=== PATIENT | female | born 1985 | race American Indian/Alaskan Native ===

== ENCOUNTER 2017-04-10 07:33 | Day surgery (SDC) | payer OTHER ==
[2017-04-10] MEDS ORDERED: NACL BACTERIOSTATIC INFILTRATI ONE (08:39)
--- NOTE | 2017-04-10 08:40 | Anesthesia Consultation ---
Anesthesia Consult and Med Hx Date of service: 04/10/17 - Airway Anesthetic Teeth Evaluation: Good, Chipped (upper left molar) ROM Head & Neck: Adequate Mental/Hyoid Distance: Adequate Mallampati Class: Class II Intubation Access Assessment: Probably Good - Pulmonary Exam CTA: Yes - Cardiac Exam Cardiac Exam: RRR - Pre-Operative Health Status ASA Pre-Surgery Classification: ASA3 Proposed Anesthetic Plan: General - Pulmonary Hx Smoking: No - Cardiovascular System Hx Hypertension: Yes (x 11 yrs) - Central Nervous System Hx Psychiatric Problems: No - Gastrointestinal Hx Gastroesophageal Reflux Disease: Yes (Food related) - Endocrine Hx Non-Insulin Dependent Diabetes: Yes - Other Systems Hx Alcohol Use: Yes (occas) Hx Cancer: No Hx Obesity: Yes - Additional Comments Anesthesia Medical History Comments: 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
--- NOTE | 2017-04-10 08:40 | Anesthesia Day of Surgery ---
Anesthesia Day of Surgery - Day of Surgery Patient Examined: Yes Patient H&P Reviewed: Yes Patient is NPO: Yes
[2017-04-10] MEDS ORDERED: NACL 0.9% 1000 ML 1,000 ML IV SCH (09:00)
[2017-04-10] MEDS ORDERED: VERSED IV NR (09:00)
[2017-04-10] MEDS ORDERED: PEPCID IV NR (09:00)
[2017-04-10] MEDS ORDERED: NACL 0.9% IR ONE ×2 (09:40)
[2017-04-10] MEDS ORDERED: DIPRIVAN 10 MG/ML IV ONE (09:56)
[2017-04-10] MEDS ORDERED: DILAUDID ONE (09:57)
[2017-04-10] MEDS ORDERED: XYLOCAINE MPF 2% ONE (09:57)
--- NOTE | 2017-04-10 10:21 | History and Physical Report ---
History of Present Illness Date of examination: 04/10/17 Chief complaint: Retained IUD History of present illness: Pt is a 31 year old -[place] female who presents for operative removal of IUD after failed attempt to remove it in office. Past History Past Medical History: hypertension, diabetes Past Surgical History: no surgical history [employer] History: herpes, trichomonas (remote, treated ) Family/Genetic History: diabetes, hypertension Social history: no significant social history Medications and Allergies Allergies Allergy/AdvReac Type Severity Reaction Status Date / Time latex Allergy Itching Verified 04/09/17 15:07 Home Medications Medication Instructions Recorded Confirmed Last Taken Type Insulin Glargine [Lantus] 90 unit SUB-Q QHS 04/09/17 04/10/17 04/09/17 History Insulin Lispro [Humalog] 45 unit SQ TID 04/09/17 04/10/17 04/09/17 History Lisinopril/Hydrochlorothiazide 1 tab PO QDAY 04/09/17 04/10/17 04/10/17 06:00 History [Zestoretic 20-12.5 mg] Active Meds: Active Medications Famotidine (Pepcid) 20 mg IV PREOP NR Stop: 04/10/17 15:00 Last Admin: 04/10/17 09:31 Dose: 20 mg Sodium Chloride (Nacl 0.9% 1000 Ml) 1,000 mls @ 75 mls/hr IV DIRECT SARAH Last Admin: 04/10/17 09:30 Dose: 75 mls/hr Cefazolin Sodium (Ancef/Sterile Water 2 Gm/20 Ml) 2 gm in 20 mls @ 80 mls/hr IV PREOP NR PRN Reason: Protocol Midazolam HCl (Versed) 2 mg IV PREOP NR Stop: 04/10/17 23:59 Review of Systems All systems: negative - Vital Signs Vital signs: Vital Signs Temp Pulse Resp BP Pulse Ox 99.3 F 83 24 118/79 98 04/10/17 08:40 04/10/17 08:40 04/10/17 08:40 04/10/17 08:40 04/10/17 08:40 Temp Pulse Resp BP Pulse Ox 99.3 F 88 24 118/79 98 04/10/17 08:45 04/10/17 08:45 04/10/17 08:45 04/10/17 08:45 04/10/17 08:45 - Physical Exam Breasts: Positive: deferred Cardiovascular: Regular rate Lungs: Positive: Clear to auscultation Abdomen: Positive: soft (obese ) Extremities: Positive: normal Results Result Diagrams: 04/10/17 09:00 Abnormal lab results 04/10/17 Range/Units 09:07 POC Glucose 264 H (70-105) All other labs normal. Assessment and Plan A: Retained IUD Diabetes Hypertension Obesity P: Hysteroscopic IUD removal and other indicated procedures.
[2017-04-10 10:39] LABS: Hematocrit 38.6 % (30.3-42.9); Hemoglobin 13.2 gm/dl (10.1-14.3); Mean Corpuscular HGB Conc 34 % (30-34); Mean Corpuscular Hemoglobin 31 pg (28-32); Mean Corpuscular Volume 91 fl (79-97); Platelet Count 246 K/mm3 (140-440); Red Blood Count 4.25 M/mm3 (3.65-5.03); White Blood Count 5.8 K/mm3 (4.5-11.0)
[2017-04-10 10:46] LABS: Anion Gap 17 mmol/L; Blood Urea Nitrogen 12 mg/dL (7-17); Calcium 8.6 mg/dL (8.4-10.2); Carbon Dioxide 25 mmol/L (22-30); Glucose 283 mg/dL (65-100); Potassium 4.2 mmol/L (3.6-5.0); Sodium 138 mmol/L (137-145)
[2017-04-10] MEDS ORDERED: ANCEF/STERILE WATER 2 GM/20 ML 2 GM/20 ML SYRINGE IV NR (11:00)
[2017-04-10] MEDS ORDERED: ZOFRAN ONE (11:15)
[2017-04-10] MEDS ORDERED: SILVER NITRATE TP ONE (11:25)
--- NOTE | 2017-04-10 11:49 | Operative Report ---
Operative Report Operative Report: Date of procedure: April 10, 2017 Preoperative Diagnosis: Retained IUD Postoperative Diagnosis: Same Procedure: Hysteroscopic IUD removal Surgeon: Valentina Vance MD Findings: 1) Small mobile uterus 2) Intact Mirena IUD with the strings in the cervical canal Anesthesia: General with LMA EBL: Minimal IVF: 800 mL Urine output: 275 mL, prior to the procedure Specimen: IUD to pathology Drains: None Complication: None Disposition: Stable to PACU Indication for Procedure: Pt is a 31 year old presents for hysteroscopic removal of IUD after failed attempt in office. Operation in Detail: After the risks, benefits, alternatives and complications were explained to the pt, she gave informed consent for the procedure. She was subsequently taken to the operating room with her IV noted to be running well and placed in the dorsal supine position. General anesthesia was then inducted without difficulty. An exam under anesthesia was then performed. The pt was then placed in the dorsal lithotomy position and prepped and draped in a normal sterile fashion. A timeout was performed. A catheter was placed in the bladder which drained 275 mL of clear urine. A bivalve speculum was placed in the vagina for visualization of the cervix. A single tooth tenaculum was placed on the anterior lip of the cervix for traction. The cervix was then serially dilated to a number 23 Bruno dilator. An 8 mm hysteroscope was then placed into the cervix. The IUD string was visualized in the cervical canal and grasped with the hysteroscopic grasper. The entire pulled into the vagina including an intact Mirena IUD that was sent to pathology. The hysteroscopy and tenaculum were then removed from the vagina. The tenaculum puncture sites were hemostatic, and hemostasis of the external cervical os was obtained using silver nitrate. Hemostasis was noted. All instruments were removed from the vagina and the procedure was ended. The pt was placed into the dorsal supine position and extubated without difficulty. She was subsequently taken to the PACU in stable condition. All instrument and lap counts were correct x 2.
--- NOTE | 2017-04-10 11:53 | Short Stay Summary ---
Short Stay Documentation Date of service: 04/10/17 - History H&P: dictated Social history: no significant social history - Allergies and Medications Current Medications: Allergies latex Allergy (Verified 04/09/17 15:07) Itching Home Medications Medication Instructions Recorded Confirmed Last Taken Type Insulin Glargine [Lantus] 90 unit SUB-Q QHS 04/09/17 04/10/17 04/09/17 History Insulin Lispro [Humalog] 45 unit SQ TID 04/09/17 04/10/17 04/09/17 History Lisinopril/Hydrochlorothiazide 1 tab PO QDAY 04/09/17 04/10/17 04/10/17 06:00 History [Zestoretic 20-12.5 mg] Active Medications Famotidine (Pepcid) 20 mg IV PREOP NR Stop: 04/10/17 15:00 Last Admin: 04/10/17 09:31 Dose: 20 mg Sodium Chloride (Nacl 0.9% 1000 Ml) 1,000 mls @ 75 mls/hr IV DIRECT SARAH Last Admin: 04/10/17 09:30 Dose: 75 mls/hr Cefazolin Sodium (Ancef/Sterile Water 2 Gm/20 Ml) 2 gm in 20 mls @ 80 mls/hr IV PREOP NR PRN Reason: Protocol Stop: 04/10/17 18:00 Midazolam HCl (Versed) 2 mg IV PREOP NR Stop: 04/10/17 23:59 Last Admin: 04/10/17 10:40 Dose: 2 mg - Physical exam Breasts: deferred - Brief post op/procedure progress note Date of procedure: 04/10/17 Pre-op diagnosis: Retained IUD Post-op diagnosis: same Procedure: Retained IUD Anesthesia: GETA (with LMA) Findings: 1) Retained Mirena IUD with strings in the cervical canal 2) Nulliparous os Surgeon: NAOMI MAIER Estimated blood loss: minimal Pathology: list (IUD) Specimen disposition: to lab Condition: stable - Hospital course Hospital course: Pt underwent Hysteroscopic IUD removal which she tolerated well. She was observed in the PACU until she met discharge criteria. - Disposition Condition at discharge: Stable Disposition: DISCHARGED TO HOME OR SELFCARE - Discharge Diagnoses (1) Malpositioned IUD Status: Acute Qualifiers: Encounter type: sequela Qualified Code(s): T83.32XS - Displacement of intrauterine contraceptive device, sequela (2) Hypertension Status: Acute Qualifiers: Hypertension type: essential hypertension Qualified Code(s): I10 - Essential (primary) hypertension (3) Diabetes Status: Acute Qualifiers: Diabetes mellitus type: type 2 Diabetes mellitus complication status: D Diabetes mellitus complication detail: D Diabetic retinopathy severity: D Proliferative retinopathy type: P Diabetes mellitus macular edema: D Diabetes mellitus correction insulin use: D Laterality: L Chronic kidney disease stage: C (4) Obesity Status: Acute Qualifiers: Obesity type: O Obesity severity: O Short Stay Discharge Plan Activity: other (Nothing per vagina x 4 weeks ) Weight Bearing Status: Full Weight Bearing Diet: regular Additional Instructions: Vaginal spotting is expected. Heavy vaginal bleeding greater than one pad per hour or severe abdominal cramping that is not improved by pain medication should prompt you to call your doctor. Also call your doctor for new onset shortness of breath, leg swelling or calf pain. Follow up with: LISA HAMILTON MD [Primary Care Provider] - 7 Days NAOMI MAIER MD [Staff Physician] - 05/08/17 (postop exam ) Prescriptions: Ibuprofen [Motrin] 800 mg PO Q8HR PRN #30 tablet PRN Reason: Pain oxyCODONE /ACETAMINOPHEN [Percocet 5/325] 1 tab PO Q6HR PRN #30 tablet PRN Reason: Pain
[2017-04-10] MEDS ORDERED: PERCOCET 5/325 ONE (12:19)
--- NOTE | 2017-04-10 12:20 | Post Anesthesia Evaluation ---
- Post Anesthesia Evaluation Patient Participated: Yes Airway Patent: Yes Stable Respiratory Function: Yes Nausea/Vomiting: No Temp > 96.8F: Yes Pain Manageable: Yes Adequeate Hydration: Yes Anesthesia Complications: No Block Receding Appropriately: Not Applicable Patient on Ventilator: No
[2017-04-10] MEDS ORDERED: PERCOCET 5/325 PO PRN (12:22)
[2017-04-10 12:48] VITALS: BP 128/81
== END 2017-04-10 13:07 | disposition home or self-care (01) ==
LOC: OR 07:33
PROVIDERS: ATTEND Obstetrics & Gynecology
DX: Z30.432 Encounter for removal of intrauterine contraceptive device (principal); I10 Essential (primary) hypertension; E11.9 Type 2 diabetes mellitus without complications; K21.9 Gastro-esophageal reflux disease without esophagitis; E66.9 Obesity, unspecified; Z68.33 Body mass index [BMI] 33.0-33.9, adult; Z79.4 Long term (current) use of insulin; Z79.899 Other long term (current) drug therapy; Z91.040 Latex allergy status; Z72.89 Other problems related to lifestyle; Z86.711 Personal history of pulmonary embolism; Z86.718 Personal history of other venous thrombosis and embolism; Z82.49 Family history of ischemic heart disease and other diseases of the circulatory system; Z83.3 Family history of diabetes mellitus
CPT/HCPCS: 36415; 58562; 80048; 81025; 82962; 84132; 85027; 86850; 86900; 86901; 88302; A4217; J0690; J1170; J2250; J2405; J2704; J7030; 88300; J1815

== ENCOUNTER 2018-04-25 06:39 | Day surgery (SDC) | payer OTHER ==
[2018-04-25] MEDS ORDERED: ECOTRIN PO NR (06:57)
[2018-04-25] MEDS ORDERED: NACL 0.9% 500 ML 500 ML IV SCH (07:00)
[2018-04-25 07:34] LABS: Basophils % (Auto) 0.5 % (0.0-1.8); Eosinophils # (Auto) 0.1 K/mm3 (0.0-0.4); Hematocrit 40.4 % (30.3-42.9); Hemoglobin 13.7 gm/dl (10.1-14.3); Lymphocytes # (Auto) 1.4 K/mm3 (1.2-5.4); Lymphocytes % (Auto) 19.3 % (13.4-35.0); Mean Corpuscular HGB Conc 34 % (30-34); Mean Corpuscular Hemoglobin 31 pg (28-32); Mean Corpuscular Volume 90 fl (79-97); Monocytes # (Auto) 0.5 K/mm3 (0.0-0.8); Monocytes % (Auto) 7.5 % (0.0-7.3); Platelet Count 282 K/mm3 (140-440); Red Blood Count 4.48 M/mm3 (3.65-5.03); Red Cell Distribution Width 12.2 % (13.2-15.2)
[2018-04-25 07:45] LABS: INR 0.89 (0.87-1.13)
[2018-04-25 07:47] LABS: BUN/Creatinine Ratio 22; Blood Urea Nitrogen 13 mg/dL (7-17); Hemolysis Index 5
[2018-04-25] MEDS ORDERED: K-DUR PO ONE (07:55)
[2018-04-25] MEDS ORDERED: K-DUR PO SCH (07:58)
[2018-04-25] MEDS ORDERED: CALAN ONE ×2 (08:08→09:12)
[2018-04-25] MEDS ORDERED: HEPARIN 10,000 UNITS/10 ML ONE (08:08)
[2018-04-25] MEDS ORDERED: HEPARIN/NS 5000 UNIT/500ML(CATH LAB) 1,000 ML IR ONE (08:08)
[2018-04-25] MEDS ORDERED: NITROGLYCERIN SYRINGE 3 ML ONE ×2 (08:08→09:12)
[2018-04-25] MEDS ORDERED: XYLOCAINE 2% INFILTRATI ONE (08:08)
[2018-04-25] MEDS ORDERED: VERSED ONE (08:09)
[2018-04-25] MEDS ORDERED: K-DUR PO NR (08:30)
[2018-04-25] MEDS: SUBLIMAZE ONE ×2 (08:57→09:08)
--- NOTE | 2018-04-25 09:28 | Short Stay Summary ---
Short Stay Documentation Date of service: 04/25/18 - History H&P: obtained from office - Allergies and Medications Current Medications: Allergies latex Allergy (Verified 04/09/17 15:07) Itching Home Medications Medication Instructions Recorded Confirmed Last Taken Type Insulin Degludec [Tresiba 64 unit SQ 04/25/18 04/24/18 History Flextouch U-100] Lisinopril/Hydrochlorothiazide 1 tab PO DAILY 04/25/18 04/25/18 04/24/18 History [Zestoretic 20-25 mg] Lispro Insulin [Humalog] 22 unit SQ TID 04/25/18 04/25/18 04/24/18 History Norethindrone [Jencycla] 0.35 mg PO DAILY 04/25/18 04/25/18 04/24/18 History Active Medications Aspirin (Ecotrin) 325 mg PO ONCE NR Stop: 04/25/18 10:00 Last Admin: 04/25/18 07:15 Dose: 325 mg Sodium Chloride (Nacl 0.9% 500 Ml) 500 mls @ 50 mls/hr IV DIRECT SARAH Stop: 04/25/18 16:59 Last Admin: 04/25/18 07:53 Dose: 50 mls/hr Potassium Chloride (K-Dur) 20 meq PO ONCE NR Stop: 04/25/18 10:00 Last Admin: 04/25/18 07:59 Dose: 20 meq - Brief post op/procedure progress note Date of procedure: 04/25/18 Pre-op diagnosis: chest pain Post-op diagnosis: same Procedure: see report normal coronaries and normal lv function Anesthesia: local Estimated blood loss: none Pathology: none - Disposition Condition at discharge: Good Disposition: DC-01 TO HOME OR SELFCARE - Discharge Diagnoses (1) Diabetes Status: Acute Qualifiers: Diabetes mellitus type: type 1 Diabetes mellitus complication status: without complication Qualified Code(s): E10.9 - Type 1 diabetes mellitus without complications (2) Hypertension Status: Chronic Qualifiers: Hypertension type: essential hypertension (3) Obesity Status: Chronic Qualifiers: Obesity type: due to excess calories Obesity classification: adult class 2 (BMI 35 - 39.9) Short Stay Discharge Plan Activity: advance as tolerated Diet: low fat, low cholesterol, low salt, diabetic Wound: keep clean and dry Follow up with: MIKE NGO DO [Primary Care Provider] - 7 Days
--- NOTE | 2018-04-25 10:53 | Cardiac Catherization Report ---
PROCEDURE: This is a Left heart catheterization performed via the right radial artery, sterile technique, local anesthesia, 6-Japanese radial sheath inserted. CLINICAL INFORMATION: A 32-year-old female with persistent chest pains with an abnormal treadmill stress test is here for left heart catheterization. The patient had moderate sedation, 1 mg of Versed and 100 mcg of fentanyl was given. Procedure was performed via the right radial artery, sterile technique, local anesthesia. Normal Barrington's test. Sterile 6-Japanese radial sheath inserted. PROCEDURE FINDINGS: Left system engaged with L3.5 nerve catheter. Left main is large and patent, bifurcates to a large LAD that is patent with moderate tortuosity. Diagonal 1 is a large caliber vessel and is patent. Circumflex and AV groove is a large caliber vessel. OM1, OM2 are large caliber vessels, patent with moderate tortuosity. RCA is engaged with an AR Mod catheter. It is [id number] caliber vessel, patent with moderate tortuosity patent. PDA is medium caliber vessel that is patent. PLV small caliber vessel that is patent. LV gram done in ROMANSH view shows normal LV function, EF 55-60%. LVEDP of 15 mmHg, LV is 160, aortic is 150/96. No significant gradient across the aortic valve on pullback, 5-Japanese catheter taken over the guidewire, 6-Japanese radial sheath was discontinued. Radial dressing applied. No hematoma, no bleeding. SUMMARY: 1. Normal coronaries, moderate tortuous vessel, right dominant system with normal LV function. 2. Continue medical management. JOB# [id number] JOSE/ROSY
[2018-04-25 13:17] VITALS: BP 121/69
== END 2018-04-25 12:30 | disposition home or self-care (01) ==
LOC: CATHLABREC 06:39
PROVIDERS: ATTEND Internal Medicine
DX: R94.39 Abnormal result of other cardiovascular function study (principal); I11.9 Hypertensive heart disease without heart failure; E66.9 Obesity, unspecified; E11.319 Type 2 diabetes mellitus with unspecified diabetic retinopathy without macular edema; E78.5 Hyperlipidemia, unspecified; Z98.890 Other specified postprocedural states; Z79.4 Long term (current) use of insulin; Z91.040 Latex allergy status; Z79.82 Long term (current) use of aspirin; Z79.01 Long term (current) use of anticoagulants
CPT/HCPCS: 36415; 80048; 85025; 85610; 85730; 93005; 93010; 93458; 99156; 99157; C1894; J1644; J2250; J3010; J7040; Q9967